=== PATIENT | female | born 1980 | race Caucasian/White ===

== ENCOUNTER 2017-10-30 02:18 | Emergency (ER) | payer OTHER, MEDICAID ==
[2017-10-30] MEDS: ONDANSETRON (ODT) 4 MG TAB ODT (03:28)
[2017-10-30] MEDS: HYDROCODONE/APAP (10/325) TAB PO (03:28)
[2017-10-30 03:44] LABS: URINE BLOOD (Dip) POC Negative (NEGATIVE); URINE GLUCOSE (Dip) POC Negative (NEGATIVE); URINE KETONES (Dip) POC Trace (NEGATIVE); URINE LEUKOCYTE EST (Dip) POC Negative (NEGATIVE); URINE NITRITE (Dip) POC Negative (NEGATIVE); URINE TOTAL PROTEIN POC Negative (NEGATIVE)
[2017-10-30 03:44] LABS: URINE PH (Dip) POC 5.5 (5.0-8.5)
[2017-10-30 04:02] LABS: ADD UMIC NO; UR ASCORBIC ACID NEGATIVE (NEGATIVE); UR BACTERIA FEW /HPF (NONE SEEN); UR BILIRUBIN (Dip) NEGATIVE (NEGATIVE); UR BLOOD (Dip) NEGATIVE (NEGATIVE); UR CLARITY SLIGHTLY CLOUDY (CLEAR); UR COLOR YELLOW (YELLOW); UR GLUCOSE (Dip) NEGATIVE (NEGATIVE); UR KETONES (Dip) NEGATIVE (NEGATIVE); UR LEUKOCYTE ESTERASE (Dip) NEGATIVE Leu/ul (NEGATIVE); UR MUCUS FEW /HPF (NONE SEEN); UR NITRITE (Dip) NEGATIVE (NEGATIVE); UR RBC 0 /HPF (0-5); UR SPECIFIC GRAVITY (Dip) 1.017 (1.003-1.030); UR SQUAMOUS EPITHELIAL CELL FEW /HPF (FEW); UR TOTAL PROTEIN (Dip) NEGATIVE (NEGATIVE); UR UROBILINOGEN (Dip) 1+ mg/dL (NEGATIVE); UR WBC 3 /HPF (0-5)
[2017-10-30 04:07] LABS: ADD MAN DIFF? NO
[2017-10-30 04:11] LABS: BASOPHILS % 0.6 % (0.0-2.0); EOSINOPHILS # 0.1 10^3/ul (0.0-0.5); EOSINOPHILS % 1.4 % (0.0-7.0); HEMATOCRIT 32.7 % (37.0-47.0); HEMOGLOBIN 9.6 g/dl (12.0-16.0); LYMPHOCYTES # 1.6 10^3/ul (0.8-2.9); LYMPHOCYTES % 31.3 % (15.0-51.0); MEAN CORPUSCULAR HEMOGLOBIN 24.1 pg (29.0-33.0); MEAN CORPUSCULAR HGB CONC 29.4 g/dl (32.0-37.0); MONOCYTE # 0.4 10^3/ul (0.3-0.9); MONOCYTES % 8.7 % (0.0-11.0); NEUTROPHIL # 2.9 10^3/ul (1.6-7.5); NEUTROPHILS % 57.6 % (39.0-77.0); PLATELET COUNT 201 10^3/UL (140-415); RED BLOOD COUNT 3.99 10^6/ul (4.20-5.40); RED CELL DISTRIBUTION WIDTH 17.2 % (11.5-14.5)
[2017-10-30 04:12] LABS: MEAN PLATELET VOLUME 12.2 fl (7.4-10.4); POSITIVE DIFF @See below
[2017-10-30 04:48] LABS: ALANINE AMINOTRANSFERASE 13 IU/L (13-69); ALBUMIN 3.7 g/dl (3.3-4.9); ALBUMIN/GLOBULIN RATIO 1.32; ALKALINE PHOSPHATASE 60 IU/L (42-121); ANION GAP 12 (8-16); ASPARTATE AMINO TRANSFERASE 32 IU/L (15-46); BILIRUBIN,INDIRECT 0.2 mg/dl (0-1.1); BILIRUBIN,TOTAL 0.2 mg/dl (0.2-1.3); BLOOD UREA NITROGEN 14 mg/dl (7-20); CALCIUM 8.8 mg/dl (8.4-10.2); CARBON DIOXIDE 19 mmol/L (21-31); CHLORIDE 115 mmol/L (97-110); CREATININE 0.79 mg/dl (0.44-1.00); GLUCOSE 89 mg/dl (70-220); LIPASE 150 U/L (23-300); POTASSIUM 3.6 mmol/L (3.5-5.1); SODIUM 142 mmol/L (135-144); TOTAL PROTEIN 6.5 g/dl (6.1-8.1)
== END 2017-10-30 06:05 | disposition home or self-care (01) ==
LOC: E/R 02:18
DX: R10.11 Right upper quadrant pain (principal); F17.210 Nicotine dependence, cigarettes, uncomplicated; R11.2 Nausea with vomiting, unspecified
CPT/HCPCS: 36415; 74176; 80053; 81001; 81003; 81025; 83690; 85025; 87086; 99284-25

== ENCOUNTER 2017-10-30 06:28 | Emergency (ER) | payer OTHER, MEDICAID | END 2017-10-30 07:29 | disposition home or self-care (01) | LOC: E/R 06:28 | DX: R10.84 Generalized abdominal pain (principal); R11.2 Nausea with vomiting, unspecified; Z76.5 Malingerer [conscious simulation]; Z87.891 Personal history of nicotine dependence | CPT/HCPCS: 99283 ==

== ENCOUNTER 2017-12-06 11:07 | Emergency (ER) | payer OTHER, MEDICAID | END 2017-12-06 13:10 | disposition left against medical advice (07) | LOC: FTE 11:07 | DX: K52.9 Noninfective gastroenteritis and colitis, unspecified (principal); Z87.891 Personal history of nicotine dependence | CPT/HCPCS: 99282 ==

== ENCOUNTER 2017-12-08 20:27 | Emergency (ER) | payer OTHER, MEDICAID ==
[2017-12-08] MEDS: hydrOXYzine PAMOATE 25 MG CAP PO (21:37)
[2017-12-08] MEDS: ALPRAZOLAM 0.25 MG TAB PO (23:32)
== END 2017-12-08 23:41 | disposition home or self-care (01) ==
LOC: E/R 20:27
DX: F41.9 Anxiety disorder, unspecified (principal); F17.210 Nicotine dependence, cigarettes, uncomplicated; R40.2142 Coma scale, eyes open, spontaneous, at arrival to emergency department; R40.2362 Coma scale, best motor response, obeys commands, at arrival to emergency department; R40.2252 Coma scale, best verbal response, oriented, at arrival to emergency department; Z72.89 Other problems related to lifestyle
CPT/HCPCS: 99283

== ENCOUNTER 2017-12-16 16:39 | Emergency (ER) | payer SELFPAY, OTHER, MEDICAID | END 2017-12-16 19:41 | disposition left against medical advice (07) | LOC: FTE 19:41 | DX: Z53.21 Procedure and treatment not carried out due to patient leaving prior to being seen by health care provider (principal) ==

== ENCOUNTER 2017-12-16 20:01 | Emergency (ER) | payer SELFPAY, OTHER, MEDICAID | END 2017-12-16 20:45 | disposition left against medical advice (07) | LOC: FTE 20:01 | DX: Z53.21 Procedure and treatment not carried out due to patient leaving prior to being seen by health care provider (principal) ==

== ENCOUNTER 2017-12-16 23:32 | Emergency (ER) | payer OTHER, MEDICAID ==
[2017-12-17] MEDS: GABAPENTIN 300 MG CAP PO (02:55)
== END 2017-12-17 03:03 | disposition home or self-care (01) ==
LOC: FTE 23:32
DX: F41.9 Anxiety disorder, unspecified (principal); F32.89 Other specified depressive episodes; F17.210 Nicotine dependence, cigarettes, uncomplicated
CPT/HCPCS: 99283

== ENCOUNTER 2018-01-12 15:54 | Emergency (ER) | payer OTHER, MEDICAID ==
[2018-01-12] MEDS: LORAZEPAM 1 MG TAB PO (17:09)
== END 2018-01-12 17:43 | disposition home or self-care (01) ==
LOC: FTE 15:54
DX: F41.9 Anxiety disorder, unspecified (principal); F17.210 Nicotine dependence, cigarettes, uncomplicated
CPT/HCPCS: 99283

== ENCOUNTER 2018-01-26 16:06 | Emergency (ER) | payer OTHER, MEDICAID ==
[2018-01-26] MEDS: LORAZEPAM 1 MG TAB PO (16:51)
== END 2018-01-26 17:02 | disposition home or self-care (01) ==
LOC: FTE 16:06
DX: F41.9 Anxiety disorder, unspecified (principal); F13.20 Sedative, hypnotic or anxiolytic dependence, uncomplicated; Z87.891 Personal history of nicotine dependence
CPT/HCPCS: 99283

== ENCOUNTER 2018-02-03 16:44 | Emergency (ER) | payer OTHER, MEDICAID ==
[2018-02-03] MEDS: LORAZEPAM 1 MG TAB PO (20:58)
== END 2018-02-03 21:13 | disposition home or self-care (01) ==
LOC: FTE 16:44
DX: F41.9 Anxiety disorder, unspecified (principal); F17.210 Nicotine dependence, cigarettes, uncomplicated; Z72.89 Other problems related to lifestyle
CPT/HCPCS: 99283

== ENCOUNTER 2018-03-17 16:10 | Emergency (ER) | payer OTHER, MEDICAID ==
[2018-03-17] MEDS: LORAZEPAM 1 MG TAB PO (18:02)
== END 2018-03-17 18:11 | disposition home or self-care (01) ==
LOC: FTE 16:10
DX: F41.9 Anxiety disorder, unspecified (principal); F17.210 Nicotine dependence, cigarettes, uncomplicated
CPT/HCPCS: 99283

== ENCOUNTER 2018-03-20 15:53 | Emergency (ER) | payer OTHER, MEDICAID ==
[2018-03-20] MEDS: LORAZEPAM 1 MG TAB PO (18:54)
== END 2018-03-20 19:01 | disposition home or self-care (01) ==
LOC: FTE 15:53
DX: F41.9 Anxiety disorder, unspecified (principal); F17.210 Nicotine dependence, cigarettes, uncomplicated
CPT/HCPCS: 99283

== ENCOUNTER 2018-10-02 11:49 | Emergency (ER) | payer SELFPAY, OTHER, MEDICAID | END 2018-10-02 12:10 | disposition home or self-care (01) | LOC: FTE 11:49 | DX: F41.9 Anxiety disorder, unspecified (principal); F17.210 Nicotine dependence, cigarettes, uncomplicated; Z72.89 Other problems related to lifestyle | CPT/HCPCS: 99282 ==